=== PATIENT | female | born 1970 | race Caucasian/White ===

== ENCOUNTER → 2016-11-22 | Outpatient (CLI) | payer BC ==
[~2016-11-22] MED LIST: ADAL40PE2 SQ; DULO60CA25 PO; ESTR1PAT44 TD; SENN-15 DOB; TIZA4CAP PO; ZOLP-109 PO; [UNRECOGNIZED DRUG - CODE] PO
--- NOTE | 2016-11-22 15:19 | DI ---
Indication: ITS.REASON: M54.10 low back and left leg pain and numbness for one month. No reported trauma PROCEDURE: MRI LUMBAR SPINE W/O CONTRAST: Encounter: Initial Comparison: None Technique: Multiplanar multisequence MR imaging of the lumbar spine was performed without contrast. Findings: Mild scoliotic curvature. Vertebral body heights are normal. No acute fracture. Bone marrow signal intensity is normal. The paraspinal soft tissues show a low T2 signal intensity lesion in the lower pole of the left kidney measuring 1.2 cm in diameter. Segmental analysis: L1-L2: Small right central disk bulge without central canal stenosis. No neural foraminal stenosis. L2-L3: Normal L3-L4: Normal L4-L5: Mild disk desiccation with a left foraminal disk protrusion and degenerative facet disease contributing to mild central canal narrowing and narrowing of the left lateral recess. There is an osteophyte abutting the traversing left L5 nerve root and disk material contributing to mild left neural foraminal stenosis. No significant right foraminal narrowing. L5-S1: Small right foraminal disk protrusion with a high intensity zone. This contacts the traversing right S1 nerve root and contributes to mild neural foraminal narrowing. No central canal or left neural foraminal stenosis. Impression: 1. Degenerative disk disease at L4-L5 and L5-S1 as above. 2. Indeterminate low T2 signal intensity lesion in the left kidney. Recommend a renal ultrasound for further evaluation. .
== END ==
LOC: IMA 13:24
PROVIDERS: ATTEND Nurse Practitioner
DX: M51.16 Intervertebral disc disorders with radiculopathy, lumbar region (principal); M51.17 Intervertebral disc disorders with radiculopathy, lumbosacral region; N28.9 Disorder of kidney and ureter, unspecified

== ENCOUNTER → 2016-12-31 | Outpatient (CLI) | payer BC | LOC: WC.BC 12:47 | DX: Z12.31 Encounter for screening mammogram for malignant neoplasm of breast (principal) | CPT/HCPCS: 77063; G0202 ==